=== PATIENT | female | born 1945 | race Caucasian/White ===

== ENCOUNTER 2019-06-27 08:10 | Day surgery (SDC) | payer OTHER, MEDICAID ==
[~2019-06-27] VITALS: Ht 160 cm; Wt 68.0 kg
[2019-06-27 08:24] VITALS: BP 160/93
[2019-06-27 16:34] VITALS: BP 146/94
== END 2019-06-27 16:15 | disposition home or self-care (01) ==
LOC: DS 08:10 → MU 10:30 → EDSTATUS 10:30 → DS 16:15
DX: N81.10 Cystocele, unspecified (principal); N81.6 Rectocele; N81.5 Vaginal enterocele; E78.00 Pure hypercholesterolemia, unspecified; E66.3 Overweight; J45.909 Unspecified asthma, uncomplicated; F17.210 Nicotine dependence, cigarettes, uncomplicated; I12.9 Hypertensive chronic kidney disease with stage 1 through stage 4 chronic kidney disease, or unspecified chronic kidney disease; E11.22 Type 2 diabetes mellitus with diabetic chronic kidney disease; N18.9 Chronic kidney disease, unspecified; F03.90 Unspecified dementia, unspecified severity, without behavioral disturbance, psychotic disturbance, mood disturbance, and anxiety; Z79.82 Long term (current) use of aspirin; Z79.899 Other long term (current) drug therapy; Z85.89 Personal history of malignant neoplasm of other organs and systems; Z92.21 Personal history of antineoplastic chemotherapy; Z92.3 Personal history of irradiation; Z98.890 Other specified postprocedural states; Z78.0 Asymptomatic menopausal state; Z86.73 Personal history of transient ischemic attack (TIA), and cerebral infarction without residual deficits; Z68.26 Body mass index [BMI] 26.0-26.9, adult
CPT/HCPCS: C1758; J0360; J0690; J1170; J2405; J2704; J3010; J3490; J7120